=== PATIENT | female | born 1970 | race Caucasian/White ===

== ENCOUNTER 2025-04-13 16:14 | Emergency (ER) | payer SELFPAY ==
[2025-04-13 16:16] VITALS: BP 117/94
--- NOTE | 2025-04-13 18:02 | ED.GENMED ---
History of Present Illness
General
Chief Complaint: Depression
Time Seen by Provider: 04/13/25 16:52
History of Present Illness
History of Present Illness:
Patient is a 54-year-old woman presenting to the emergency department for crisis evaluation. Patient states that she has had depression for quite some time. I tried multiple medications but unfortunately gets reactions to all of them. Currently
not on any medications. She does not have a therapist psychiatrist. She is never been admitted to an inpatient facility before. Her and her fianc� are at bedside. For the past 2 weeks she has had no energy. Her depression has worsened
especially after losing her job. Patient does have thoughts of killing herself. Her plan would be to overdose on pills. She has not attempted any of this before. She has not done anything to hurt herself. Denies any HI. No hallucinations or
delusions. Denies any alcohol or drug use.
Phy Exam
Physical Exam
Physical Exam:
GENERAL: in no acute distress
HEENT: normocephalic, extraocular movements intact, moist oral mucosa
NECK: normal inspection
RESPIRATORY: no respiratory distress, clear to auscultation bilaterally
CARDIOVASCULAR: regular rate and rhythm
ABDOMEN/: soft, non-distended, non-tender to palpation, no rebound or guarding
EXTREMITIES: non-tender, no edema/swelling
NEUROLOGIC: awake and alert, moves all extremities
Psych: Alert and oriented x 3, depressed mood and affect, speech normal not pressured, coherent thought process, not tangential, not currently suicidal or homicidal, cooperative and communicating, no active auditory or visual hallucinations, good
insight and judement
SKIN: warm
Course
Orders/Labs/Results
Orders:
Orders
04/13/25 16:26
1:1 Observation - Suicide/ Violent Behavior As Directed
04/13/25 16:47
HCG, Urine Qualitative Screen Urgent
Date Specimen was Collected: 04/13/25
Time Specimen was Collected: 16:44
Comment: ADD ON
Urine Drug Abuse Screen Urgent
Date Specimen was Collected: 04/13/25
Time Specimen was Collected: 16:44
04/13/25 19:24
Crisis Consult Urgent
Reason for Consult: suicidal thoughts
04/13/25 20:02
Add On- LAB Urgent
Tests Added?: urine hcg
04/13/25 20:09
Ondansetron Orally Disint [Zofran Odt (Orally Disintegrating)] 4 mg PO NOW STA
04/13/25 20:10
Ondansetron Orally Disint [Zofran Odt (Orally Disintegrating)] 4 mg .ROUTE .STK-MED ONE
Vital Signs
Initial and Last Documented VS:
Initial Vital Signs
Temp Pulse Resp BP Pulse Ox
98.0 F 111 18 117/94 98
04/13/25 16:16 04/13/25 16:16 04/13/25 16:16 04/13/25 16:16 04/13/25 16:16
Last Documented Vital Signs
Temp Pulse Resp BP Pulse Ox
97.7 F 86 20 114/80 98
04/13/25 22:11 04/13/25 22:11 04/13/25 22:11 04/13/25 22:11 04/13/25 22:16
MDM/Problems Addressed
Differential Diagnosis Includes:
Patient is a 54-year-old woman presenting to the emergency department for worsening depression with thoughts of SI. Patient does not have any medical complaints. She is medically clear for crisis evaluation.
*Pulse Oximetry
SaO2: 98
Oxygen Mode of Delivery: Room air
Patient hypoxic: no
*Critical Care Note
Total Time (30-74mins, 75-104mins- exclusive of procedures): Not Applicable
Update Note
Update Note:
Crisis evaluated patient. Recommending inpatient. Pending bed search at this time.
ED Attending Note
-
Portions of this chart may have been created with voice recognition software.� Occasional wrong word or��sound alike� substitutions may have occurred due to the inherent limitations of voice recognition software.
Discharge Plan
Departure
Patient Disposition: Psych Facility
Date of Disposition: 04/13/25
Time of Disposition: 20:04
Discharge Problem:
Suicide ideation
Referrals:
Celestine Weiner MD [Family Provider, [facility]]
Interventions
Interventions:
*Risk Screen - Suicide Last Done: 04/13/25 16:16
*General Assessment Last Done: 04/13/25 16:16
*Neglect/Abuse Screening Last Done: 04/13/25 20:29
*ED- Fall Risk Assessment Last Done: 04/13/25 20:19
*ED COVID-19 Vaccine History Last Done: 04/13/25 20:19
*Nursing Disposition Last Done: 04/13/25 22:16
ED-Psychological Assessment Last Done: 04/13/25 20:19
Discharge Date and Time
Discharge Date/Time: 04/13/25 22:18
Print Language: AMHARIC
[2025-04-13 20:14] LABS: HCG, Urine Qualitative Screen Negative
[2025-04-13 20:16] VITALS: BMI 20.8
[2025-04-13] MEDS: ZOFRAN ODT (ORALLY DISINTEGRATING) 4 MG PO (20:17)
[2025-04-13 22:11] VITALS: BP 114/80
== END 2025-04-13 22:18 ==
LOC: EMR 16:14
PROVIDERS: EMERGENCY PHYSICIAN Student in an Organized Health Care Education/Training Program; FAMILY PHYSICIAN Family Medicine
DX: R45.851 Suicidal ideations (principal); F32.A Depression, unspecified; Z56.89 Other problems related to employment
CPT/HCPCS: 99285; 80306; 81025